=== PATIENT | female | born 1995 | race Caucasian/White ===

== ENCOUNTER 2017-06-15 04:27 | Emergency (ER) | payer SELFPAY ==
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
[2017-06-15 04:45] VITALS: BP 119/81; PULSE 93; TEMP 97.9; BMI 25.0
== END 2017-06-15 06:17 | disposition home or self-care (01) ==
LOC: FER 04:27
DX: F10.129 Alcohol abuse with intoxication, unspecified (principal)
CPT/HCPCS: 99281-25